=== PATIENT | female | born 2000 | race Caucasian/White ===

== ENCOUNTER 2023-09-25 09:05 | Emergency (ER) | payer OTHER, SELFPAY ==
[2023-09-25 09:11] LABS: Glucose - Point of Care 82 mg/dl (70-99)
[2023-09-25 09:12] VITALS: BP 113/77
[2023-09-25 09:13] VITALS: BMI 20.5
--- NOTE | 2023-09-25 09:39 | ED.GENMED ---
History of Present Illness
General
Chief Complaint: Fainting/Passed Out
Source: patient and family
Exam Limitations: none
Time Seen by Provider: 09/25/23 09:06
History of Present Illness
History of Present Illness:
23-year-old healthy female had a syncopal episode while at the eye doctors. They had put pressure on her eyeball to check her corneas and she suddenly passed out. She has had vasovagal syncope in the past with a similar type of situation except
normally has a longer prodrome. This was very fast. She feels fine now. No preceding chest pain shortness of breath or other complaints. No family history of arrhythmias sudden cardiac arrest etc.
Past History
Past History
ED Past Medical History: None
ED Past Surgical History: Tonsilectomy
Review of Systems
Review of Systems
All Other Systems: Not applicable
Respiratory: Denies trouble breathing
Cardiac: Denies chest pain or palpitations
Phy Exam
Physical Exam
Physical Exam:
GENERAL: Alert and oriented in no apparent distress
EYE: Orbits normal.
NECK: Supple, no thyroid palpable. No carotid bruit
ENT: Pharynx without erythema
CARDIAC: Regular rate and rhythm without any obvious murmurs.
LUNGS: Clear breath sounds,normal
ABDOMEN: Soft, without focal tenderness or distention
NEUROLOGICAL: Alert and oriented , grossly non-focal. Cranial nerves II through XII intact. Speech normal.
SKIN: Warm and dry, no rash or lesion, no discoloration, skin intact.
MUSCULOSKELETAL: No edema,no deformity.Good color
PSYCH: Normal and appropriate interaction.
Course
Orders/Labs/Results
Orders:
Orders
09/25/23 09:10
ECG [Electrocardiogram (*1)] Urgent
Reason for Study: Syncope
09/25/23 09:11
EKG- Treatment ONCE
09/25/23 09:35
Test Result ONCE
09/25/23 09:36
0.9% Sodium Chloride 500 ml [Nss] 500 ml IV BOLUS
09/25/23 09:39
Basic Metabolic Panel Urgent
Beta Hcg Serum Qualitative Screen [HCG, Serum Qualitative Screen] Urgent
Complete Blood Count/With Diff Urgent
TSH Reflex To Free T4 Urgent
09/25/23 09:45
Echo 2D MMode Color/Doppler Urgent
Reason for Study: Syncope
09/25/23 11:27
Add On- LAB Urgent
Tests Added?: tsh
Abnormal Lab Results
09/25/23
09:39
RBC 3.88 L 10^6/uL
(4.20-5.40)
Hct 35.7 L %
(37.0-47.0)
MCH 33.2 H pg
(27.0-31.0)
BUN 21 H mg/dl
(7-17)
09/25/23 09:39
09/25/23 09:39
Vital Signs
Initial and Last Documented VS:
Initial Vital Signs
Temp Pulse Resp BP Pulse Ox
98 F 59 18 113/77 100
09/25/23 09:12 09/25/23 09:12 09/25/23 09:12 09/25/23 09:12 09/25/23 09:12
Last Documented Vital Signs
Temp Pulse Resp BP Pulse Ox
98 F 67 20 98/73 98
09/25/23 09:12 09/25/23 13:45 09/25/23 13:45 09/25/23 13:00 09/25/23 13:45
MDM/Problems Addressed
Differential Diagnosis Includes:
23-year-old female healthy. Very very likely vasovagal. Only slightly unusual component is the relative suddenness. This did however occur in the middle of an eye exam with pressure to her eye. She has had preceding episodes. Clinically she has
nothing to support a more serious or life-threatening cardiac arrhythmia. QT interval is normal. No Brugada syndrome. No family history. No murmurs. Workup in progress.
*Radiology
Radiology exam reviewed: other (Echo within normal limits)
*Pulse Oximetry
Patient hypoxic: no
*EKG
Interpreted by ED Provider?: Yes
Interpretation: normal
Comparison EKG: no comparison EKG present
Heart Rate: 61
Rate: normal
Rhythm: sinus
[place]: normal axis
Interval: normal interval
QRS Pattern: normal QRS
Ischemia: no ischemia
*Rubber Stamp Dies Inspector Interpretation
Rate: normal
Interpretation: normal
Heart Rate: 62
Rhythm: sinus
*Critical Care Note
Total Time (30-74mins, 75-104mins- exclusive of procedures): Not Applicable
ED Attending Note
-
Portions of this chart may have been created with voice recognition software.� Occasional wrong word or��sound alike� substitutions may have occurred due to the inherent limitations of voice recognition software.
Discharge Plan
Departure
Patient Disposition: Home (Routine Discharge)
Patient with high blood pressure during this ER visit?: No
Discharge Problem:
Syncope
Instructions: Syncope (Fainting) (DC)
Prescriptions:
No Action
ibuprofen 600 MG tablet
600 mg PO Q6H Qty: 20 0RF
Referrals:
Marta Ramirez PA-C [Family Provider] - Follow up in 2-3 days
Interventions
Interventions:
*Risk Screen - Suicide Last Done: 09/25/23 09:13
*General Assessment Last Done: 09/25/23 09:13
*Neglect/Abuse Screening Last Done: 09/25/23 09:13
ED- Fall Risk Assessment Last Done: 09/25/23 09:25
*ED COVID-19 Vaccine History Last Done: 09/25/23 09:13
*Nursing Disposition Last Done: 09/25/23 14:18
ED- Cardiac Assessment Last Done: 09/25/23 09:25
ED- Neurological Assessment Last Done: 09/25/23 09:25
Discharge Date and Time
Print Language: DJIBOUTIAN
[2023-09-25 09:56] LABS: % Basophils 0.8 % (0-2); % Eosinophils 0.4 % (0-6); % Immature Granulocytes 0.2 % (0-0.5); % Lymphocytes 28.1 % (20.5-51.1); % Monocytes 7.2 % (1.7-9.3); % Neutrophils 63.3 % (42.2-75.2); Absolute Lymphocytes 1.4 10^3/uL (1.2-3.4); Absolute Monocytes 0.4 10^3/uL (0.1-0.6); Absolute Neutrophils 3.1 10^3/uL (1.4-6.5); Hematocrit 35.7 % (37.0-47.0); Hemoglobin 12.9 g/dL (12.0-16.0); Mean Corp Hgb Conc. 36.1 g/dL (33.0-37.0); Mean Corpuscular Hgb 33.2 pg (27.0-31.0); Nucleated Red Blood Cells % 0 %; Platelet Count 249 10^3/uL (130-400); Red Blood Cell Count 3.88 10^6/uL (4.20-5.40); Red Cell Dist. Width 11.8 % (11.5-14.5); White Blood Cell Count 4.9 10^3/uL (4.8-10.8)
[2023-09-25 10:00] VITALS: BP 101/73
[2023-09-25 10:01] LABS: Blood Urea Nitrogen 21 mg/dl (7-17); Calcium 9.9 mg/dl (8.4-10.2); Carbon Dioxide 24 mmol/L (22-30); Chloride 105 mmol/L (98-107); Estimated Creatinine Clearance > 125 ml/min; Glucose 77 mg/dl (70-99); Potassium 4.4 mmol/L (3.5-5.1); Sodium 138 mmol/L (135-145); eGFR > 60.00
[2023-09-25 10:04] LABS: HCG, Serum Qualitative Screen Negative
[2023-09-25] MEDS: NSS 500 IV (10:15)
[2023-09-25 11:00] VITALS: BP 98/75
[2023-09-25 12:27] VITALS: BP 90/78
[2023-09-25 13:00] VITALS: BP 98/73
== END 2023-09-25 14:23 | disposition home or self-care (01) ==
LOC: EMR 09:05
PROVIDERS: EMERGENCY PHYSICIAN Emergency Medicine; FAMILY PHYSICIAN Physician Assistant Medical
DX: R55 Syncope and collapse (principal); Z88.1 Allergy status to other antibiotic agents
CPT/HCPCS: 99284; 80048; 82962; 84443; 84703; 85025; 93005; 93306

== ENCOUNTER 2024-08-17 06:52 | Emergency (ER) | payer OTHER, SELFPAY ==
[2024-08-17 07:08] VITALS: BP 104/74
[2024-08-17 07:37] LABS: Hematocrit 38.0 % (37.0-47.0); Hemoglobin 13.1 g/dL (12.0-16.0); Mean Corp Hgb Conc. 34.5 g/dL (33.0-37.0); Mean Corpuscular Volume 95.2 fL (81.0-99.0); Nucleated Red Blood Cells % 0 %; Platelet Count 198 10^3/uL (130-400); Red Cell Dist. Width 11.8 % (11.5-14.5)
[2024-08-17 07:42] LABS: Urine Character Clear (Clear)
[2024-08-17 07:43] LABS: HCG, Serum Qualitative Screen Negative
[2024-08-17 07:49] LABS: ALT (SGPT) 36 U/L (0-35); AST (SGOT) 40 U/L (14-36); Albumin 4.5 g/dl (3.5-5.0); Alkaline Phosphatase 52 U/L (38-126); Blood Urea Nitrogen 16 mg/dl (7-17); Calcium 9.3 mg/dl (8.4-10.2); Carbon Dioxide 27 mmol/L (22-30); Chloride 107 mmol/L (98-107); Glucose 90 mg/dl (70-99); Potassium 4.3 mmol/L (3.5-5.1); Sodium 140 mmol/L (135-145); Total Protein 7.2 g/dl (6.3-8.2); eGFR > 60.00
--- NOTE | 2024-08-17 09:58 | ED.GENMED ---
History of Present Illness
General
Chief Complaint: Urinary Symptoms
Source: patient and family (Mother at bedside)
Exam Limitations: none
Time Seen by Provider: 08/17/24 09:41
Nursing documentation reviewed up to this point in time: agreed with
History of Present Illness
History of Present Illness:
Patient is a 24-year-old female who presents to the emergency department for evaluation of persistent fatigue. Patient states she started feeling unwell on night and reports feeling fatigue, low back pain, and nausea which persisted
throughout the weekend. She was seen by her primary care provider on Friday who performed lab work and a urinalysis which apparently was unremarkable however she was started on a course of Bactrim to cover for a possible 'kidney infection'.
While patient denies any urinary symptoms including dysuria, urinary frequency, or hematuria�apparently she has a history of kidney infections.
Patient states that her lower back pain seems to have improved somewhat although she still has been intermittently nauseous and now reports a headache.
She denies any known fever, chest pain, shortness of breath, or productive cough. No abdominal pain or pelvic pain.
She denies any known sick contacts.
Past History
Past History
ED Past Medical History: None
ED Past Surgical History: Tonsilectomy
Review of Systems
Review of Systems
Allergies reviewed?: Yes
All Other Systems: ROS reviewed and negative except as documented in HPI and ROS
Phy Exam
Physical Exam
Physical Exam:
Vitals: Patient's vital signs are stable. Afebrile
General: Patient is well appearing, no acute distress
Skin: Warm and dry, no rashes or lesions
Head: Normocephalic, atraumatic
Eyes: Sclera nonicteric.
Throat: Protecting airway
Neck: Normal ROM, no cervical spine tenderness, no meningismus
Cardiac: Regular rate and rhythm, no murmurs.
Pulm: Normal respiratory effort, no wheezes, rales, rhonchi heard on exam
Abdomen: Abdomen soft. No focal tenderness
Extremities: No evidence of cyanosis or edema. Palpable DP pulses bilaterally
Neuro: AAOx3. Grossly intact.
Psychiatric: Normal affect.
Course
Orders/Labs/Results
Orders:
Orders
08/17/24 07:13
Test Result ONCE
08/17/24 07:20
CBC/With Diff [Complete Blood Count/With Diff] Urgent
Comprehensive Metabolic Panel Urgent
HCG, Serum Qualitative Screen Urgent
Lyme Progressive Urgent
Comment: ADD ON
Monotest Urgent
Comment: ADD ON
Urinalysis Reflex To Culture Urgent
Date Specimen was Collected: 08/17/24
Time Specimen was Collected: 07:13
08/17/24 09:54
0.9% Sodium Chloride 1000 ml [Nss] 1,000 ml IV BOLUS
Ketorolac [Toradol] 15 mg IV NOW STA
08/17/24 09:55
Add On- LAB Urgent
Tests Added?: monospot, lyme progressive
08/17/24 10:10
COVID-19 Antigen Urgent
Source: Nasal Swab
Abnormal Lab Results
08/17/24
07:20
WBC 4.2 L 10^3/uL
(4.8-10.8)
RBC 3.99 L 10^6/uL
(4.20-5.40)
MCH 32.8 H pg
(27.0-31.0)
Absolute Lymphs (auto) 1.0 L 10^3/uL
(1.2-3.4)
Monocytes % 13.9 H %
(1.7-9.3)
AST 40 H U/L
(14-36)
ALT 36 H U/L
(0-35)
08/17/24 07:20
08/17/24 07:20
Vital Signs
Initial and Last Documented VS:
Initial Vital Signs
Temp Pulse Resp BP Pulse Ox
98.5 F 80 16 104/74 99
08/17/24 07:08 08/17/24 07:08 08/17/24 07:08 08/17/24 07:08 08/17/24 07:08
Last Documented Vital Signs
Temp Pulse Resp BP Pulse Ox
98.5 F 64 15 95/66 96
08/17/24 07:08 08/17/24 10:13 08/17/24 10:13 08/17/24 11:00 08/17/24 10:41
MDM/Problems Addressed
Differential Diagnosis Includes:
Not limited to: Viral illness, acute dehydration, cystitis, pyelonephritis,
MDM/Problems Addressed:
24-year-old female presenting with persistent fatigue and intermittent nausea and headache for the past few days. She was started on Bactrim for possible UTI by PCP. No abdominal pain or cough. Patient has stable vital signs on arrival. Physical
exam as above. Differential broad. Symptoms possibly secondary to viral illness or dehydration. Other considerations would be persistent UTI not responding to oral antibiotics. Abdomen benign � low suspicion for acute infectious process in abdomen.
She is afebrile and nontoxic appearing. ED plan: labs, UA, fluids, and Toradol. Will reassess.
Update: labs reviewed. Mild leukopenia. UA without evidence of infection. Viral studies, including mono and Covid negative. On reassessment � patient is feeling better. Work up in ED essentially negative � lyme screen pending. At this point � do not
suspect acute emergent process. Symptoms possibly secondary to viral illness. Feel stable for discharge home with primary care follow up and supportive care.
Somewhat soft BP noted, which may be secondary to patient�s recent increase in her spironolactone for acne. Advised to decrease down to her prior dose of 100 mg and follow w/ dermatology. Strict return precautions discussed.
Chronic conditions affecting care:
N/A
Acute Exacerbation and/or Progression of Chronic Illness:
N/A
*Pulse Oximetry
SaO2: 99
Oxygen Mode of Delivery: Room air
Patient hypoxic: no
*EKG
Interpreted by ED Provider?: NA
*[place] Interpretation
Rate: [place]- N/A
*Critical Care Note
Total Time (30-74mins, 75-104mins- exclusive of procedures): Not Applicable
ED Attending Note
-
Portions of this chart may have been created with voice recognition software.� Occasional wrong word or��sound alike� substitutions may have occurred due to the inherent limitations of voice recognition software.
Discharge Plan
Departure
Patient Disposition: Home (Routine Discharge)
Date of Disposition: 08/17/24
Time of Disposition: 12:10
Patient with high blood pressure during this ER visit?: No
Condition: Good
Covid-19: Negative COVID-19
Discharge Problem:
Fatigue, Headache
Prescriptions:
No Action
ibuprofen 600 MG tablet
600 mg PO Q6H Qty: 20 0RF
Referrals:
Marta Ramirez PA-C [Family Provider, [facility]] - Follow up in 5-7 days
Stand Alone Forms: Return to Work
Activity Restrictions/Additional Instructions:
RETURN TO THE EMERGENCY DEPARTMENT FEVER, CHILLS, INTRACTABLE NAUSEA/VOMITING, WORSENING ABDOMINAL/BACK PAIN, LIGHTHEADEDNESS/DIZZINESS, WORSENING OF CURRENT SYMPTOMS, OR ANY OTHER CONCERNS
- As discussed�your lab work showed a mildly low white blood cell and mild elevation in your liver function enzymes. This may be secondary to a viral illness. Your urine showed no infection. Both your monotest and COVID test were negative. We
did send a test for Lyme disease and we will contact you if this is positive.
- Continue to stay well-hydrated and get plenty of rest. You can take Tylenol and/or Motrin at home for body aches or headache.
- Follow-up with your primary care for further evaluation/management and to ensure that your symptoms are improving. Please touch base with your gear cutter given your recently increased dose of spironolactone and lower blood pressure.
Monitor your symptoms closely and return to the emergency department with any acute worsening/new symptoms or any other concerns
Interventions
Interventions:
*Risk Screen - Suicide Last Done: 08/17/24 07:08
*General Assessment Last Done: 08/17/24 10:14
*Neglect/Abuse Screening Last Done: 08/17/24 07:08
*ED- Fall Risk Assessment Last Done: 08/17/24 10:14
*ED COVID-19 Vaccine History Last Done: 08/17/24 10:14
*Nursing Disposition Last Done: 08/17/24 12:36
ED-Female Genitourinary Assessment Last Done: 08/17/24 10:14
Discharge Date and Time
Discharge Date/Time: 08/17/24 12:36
Print Language: VIETNAMESE
[2024-08-17 10:07] VITALS: BP 99/72
[2024-08-17] MEDS: TORADOL 15 MG IV (10:11)
[2024-08-17] MEDS: NSS 1000 IV (10:12)
[2024-08-17 10:13] VITALS: BP 99/62; BMI 20.4
[2024-08-17 11:00] VITALS: BP 95/66
[2024-08-17 11:08] LABS: COVID-19 Antigen Negative (Negative)
--- NOTE | 2024-08-17 11:21 | EDRN ---
Call placed to lab to find out ETA of MONOTEST result... this test is still in progress
[2024-08-19 14:14] LABS: Lyme Antibody Screen, EIA Negative (Negative)
== END 2024-08-17 12:36 | disposition home or self-care (01) ==
LOC: EMR 06:52
PROVIDERS: Emergency Medicine; Physician Assistant; EMERGENCY PHYSICIAN Student in an Organized Health Care Education/Training Program; FAMILY PHYSICIAN Physician Assistant Medical
DX: R51.9 Headache, unspecified (principal); R53.83 Other fatigue
CPT/HCPCS: 96374; 96361; 99284; 80053; 81003; 84703; 85025; 86308; 86618; 87811

== ENCOUNTER → 2024-11-26 17:12 | Outpatient (REF) | payer OTHER, SELFPAY | LOC: RAD 17:12 | PROVIDERS: FAMILY PHYSICIAN Physician Assistant Medical | DX: N91.2 Amenorrhea, unspecified (principal); E28.2 Polycystic ovarian syndrome | CPT/HCPCS: 76830; 76856 ==